=== PATIENT | male | born 1960 | race Caucasian/White ===

== ENCOUNTER 2020-01-15 19:59 | Emergency (ER) | payer MEDICAID, OTHER ==
[2020-01-15] MEDS ORDERED: Erythromycin Base 0.5% Ophth Oint 1 GM Tube EYERT ONE (20:10)
--- NOTE | 2020-01-15 20:12 | EDM.PDOC ---
ED HPI GENERAL MEDICAL PROBLEM - General Chief Complaint: ENT Problem Stated Complaint: RT EYE STYE Time Seen by Provider: 01/15/20 20:01 Source of Information: Reports: Patient History Limitations: Reports: No Limitations - History of Present Illness INITIAL COMMENTS - FREE TEXT/NARRATIVE: HISTORY AND PHYSICAL: History of present illness: Patient is a 59-year-old male who presents to the emergency room with complaints of a stye to his right upper eyelid. He has noticed the pustule for the past 2 to 3 days. Has not tried any [id number] products. He denies any eye c omplaints, stating "it is kind of bothersome when I look up and can see it". He states he has been working on an old barn [place]into and was concerned that the eyelid could be infected from doing work outside. Patient denies any fever, chills, headache, change in vision, syncope or near syncope. Denies any chest pain, back pain, shortness of breath or cough. Denies any GI or symptoms. Review of systems: As per history of present illness and below otherwise all systems reviewed and negative. Past medical history: As per history of present illness and as reviewed below otherwise noncon tributory. Surgical history: As per history of present illness and as reviewed below otherwise noncontributory. Social history: See social history for further information Family history: As per history of present illness and as reviewed below otherwise noncontributory. Physical exam: General: Well developed and well nourished 59-year-old male. Alert and oriented. Nontoxic-appearing and in no acute distress. HEENT: Atraumatic, normocephalic, pupils equal and reactive bilaterally, negative for conjunctival pallor or scleral icterus, stye noted to the right upper medial eyelid along lash line, no scleral injection, no pain with intraocular movement, no foreign body. Mucous membranes moist, TMs normal bilaterally, throat clear, neck supple, nontender, trachea midline. No drooling or trismus noted. No meningeal signs. No hot potato voice noted. Lungs: Clear to auscultation, breath sounds equal bilaterally, chest nontender. Heart: S1S2, regular rate and rhythm without overt murmur Abdomen: Soft, nondistended, nontender. Skin: Intact, warm, dry. No lesions or rashes noted. Extremities: Atraumatic, moves all extremities per self without difficulty or deficits, negative for cords or calf pain. Neurovascular unremarkable. Neuro: Awake, alert, oriented. Cranial nerves II through XII unremarkable. Cerebellum unremarkable. Motor and sensory unremarkable throughout. Exam nonfocal. Notes: Visual acuity is within normal limits. The stye does not affect vision or globe. Medication, follow-up and supportive care measures were reviewed and discussed. Voices understanding and is agreeable to plan of care. Denies any further questions or concerns at this time. Diagnostics: None Therapeutics: Erythromycin ointment, Tdap Prescription: Erythromycin Impression: Stye, right upper lid Plan: 1. Gentle warm compresses and gentle pressure on to the closed eyelid. Apply 4-5 times per day for 10 to 15-minute increments accompanied by gentle massage of the area. Make sure your hands are clean when doing this. 2. Apply the erythromycin ointment 4 times daily over the next 5 to 7 days. 3. Follow-up with your primary care provider and/or ophthalmology as we discussed. 4. If your symptoms should worsen, new symptoms develop or any of the signs and symptoms we discussed should arise please return to the emergency room or call 911 (if needed). Definitive disposition and diagnosis as appropriate pending reevaluation and review of above. eye right Pain Score (Numeric/FACES): 5 - Related Data Allergies Allergy/AdvReac Type Severity Reaction Status Date / Time No Known Allergies Allergy Verified 01/15/20 20:17 Home Meds: Home Meds Erythromycin Base [Erythromycin 0.5% Ophth Oint] 1 applic OP Q4H 5 Days #1 tube 01/15/20 [Rx] Past Medical History - Past Health History Medical/Surgical History: Denies Medical/Surgical History ED ROS GENERAL - Review of Systems Review Of Systems: Comprehensive ROS is negative, except as noted in HPI. ED EXAM GENERAL W FULL EYE - Physical Exam Exam: See Below (See dictation) Course - Vital Signs Last Recorded V/S: Last Vital Signs Temp 96.9 F 01/15/20 20:15 Pulse 89 01/15/20 20:15 Resp 19 01/15/20 20:15 BP 113/78 01/15/20 20:15 Pulse Ox 97 01/15/20 20:15 - Orders/Labs/Meds Orders: Active Orders 24 hr Category Date Time Status Vaccines to be Administered [RC] PER UNIT ROUTINE Care 01/15/20 20:19 Active Meds: Medications Discontinued Medications Generic Name Dose Route Start Last Admin Trade Name Ever PRN Reason Stop Dose Admin Diphtheria/Tetanus/Acell Pertussis 0.5 ml 01/15/20 20:19 Adacel IM 01/15/20 20:20 .ONCE ONE Erythromycin 1 gm 01/15/20 20:10 Erythromycin 0.5% Ophth Oint EYERT 01/15/20 20:11 ONETIME ONE Departure - Departure Time of Disposition: 20:18 Disposition: Home, Self-Care 01 Clinical Impression: Stye Qualifiers: Laterality: right Eyelid: upper Qualified Code(s): H00.011 - Hordeolum externum right upper eyelid - Discharge Information Prescriptions: Erythromycin Base [Erythromycin 0.5% Ophth Oint] 1 applic OP Q4H 5 Days #1 tube Instructions: Stye Referrals: PCP,Not In Area [Primary Care Provider] - Forms: ED Department Discharge Additional Instructions: The following information is given to patients seen in the emergency department who are being discharged to home. This information is to outline your options for follow-up care. We provide all patients seen in our emergency department with a follow-up referral. The need for follow-up, as well as the timing and circumstances, are variable depending upon the specifics of your emergency department visit. If you don't have a primary care physician on staff, we will provide you with a referral. We always advise you to contact your personal physician following an emergency department visit to inform them of the circumstance of the visit and for follow-up with them and/or the need for any referrals to a consulting specialist. The emergency department will also refer you to a specialist when appropriate. This referral assures that you have the opportunity for follow-up care with a specialist. All of these measure are taken in an effort to provide you with optimal care, which includes your follow-up. Under all circumstances we always encourage you to contact your private physician who remains a resource for coordinating your care. When calling for follow-up care, please make the office aware that this follow-up is from your recent emergency room visit. If for any reason you are refused follow-up, please contact the [facility] Emergency Department at and asked to speak to the emergency department charge nurse. [facility] [address] [place] [address] [facility] [address] [place] [address] Thank you for choosing the [facility] emergency department in [place] for your medical needs today. It was a pleasure caring for you. You were seen in the emergency department for stye of the upper eye lid. 1. Gentle warm compresses and gentle pressure on to the closed eyelid. Apply 4-5 times per day for 10 to 15-minute increments accompanied by gentle massage of the area. Make sure your hands are clean when doing this. 2. Apply the erythromycin ointment 4 times daily over the next 5 to 7 days. 3. Follow-up with your primary care provider and/or ophthalmology as we discussed. 4. If your symptoms should worsen, new symptoms develop or any of the signs and symptoms we discussed should arise please return to the emergency room or call 911 (if needed). Sepsis Event Note (ED) - Focused Exam Vital Signs: Vital Signs Temp Pulse Resp BP Pulse Ox 01/15/20 20:15 96.9 F 89 19 113/78 97 - My Orders Last 24 Hours: My Active Orders 01/15/20 20:19 Vaccines to be Administered [RC] PER UNIT ROUTINE - Assessment/Plan Last 24 Hours: My Active Orders 01/15/20 20:19 Vaccines to be Administered [RC] PER UNIT ROUTINE
[2020-01-15] MEDS ORDERED: Diphtheria,Pertussis(Acell),Tetanus Vaccine 0.5 ML Syringe IM ONE (20:19)
== END 2020-01-15 21:09 | disposition home or self-care (01) ==
LOC: MW.ED 19:59
DX: H00.011 Hordeolum externum right upper eyelid (principal); Z23 Encounter for immunization
CPT/HCPCS: 90471; 90715; 99283; A9270